=== PATIENT | female | born 1975 | race Caucasian/White ===

== ENCOUNTER 2016-07-04 06:33 | Emergency (ER) | payer OTHER ==
[~2016-07-04] VITALS: Ht 185.4 cm; Wt 77.0 kg
[~2016-07-04 06:33] MED LIST: CYCL1TAB29 PO; HYDR-3534 PO
[2016-07-04 06:35] VITALS: BP 133/74; PULSE 92; RESP 20; TEMP 98; O2SAT 97
[2016-07-04] MEDS ORDERED: FAMOTIDINE 20 MG/2 ML VIAL IV PUSH ONE (06:45)
[2016-07-04] MEDS ORDERED: EPINEPHrine HCL (1:1000) 1 MG/ML VIAL IM ONE (06:45)
[2016-07-04] MEDS ORDERED: methylPREDNISolone SOD SUCC 125 MG/2 ML VIAL IVP ONE (06:45)
[2016-07-04] MEDS ORDERED: SODIUM CHLOR 0.9% 1000 ML INJ 1,000 ML IV SCH (06:45)
[2016-07-04] MEDS ORDERED: SODIUM CHLORIDE 0.9% FLUSH 5 ML FLUSH IVF PRN (06:45)
[2016-07-04 07:00] VITALS: O2SAT 98
[2016-07-04] MEDS ORDERED: ZANT150T2 PO (07:00)
[2016-07-04] MEDS ORDERED: PRED50 PO ×2 (07:00→22:57)
--- NOTE | 2016-07-04 07:00 | PD ---
HPI Chief Complaint: Allergic/Adverse Reaction Time Seen by Provider: 06:45 Travel History International Travel<30 days: No Contact w/Intl Traveler<30days: No Traveled to known affect area: No History of Present Illness HPI The patient is a 40-year-old female that states she took a Flexeril at 3 PM yesterday and at 9 PM started noticing some swelling in the wrist. The swelling and itching gradually spread to her legs, trunk and both arms. She denies any tongue swelling or airway obstruction. She feels slightly dizzy but did not faint or have any near syncopal episode. She denies any wheezing or shortness of breath. She took 50 mg of Benadryl by mouth at 6 AM this morning. PFSH Past Medical History Bipolar Disorder: Yes Diminished Hearing: No ?: Not : 3 Para: 3 Tubal Ligation: Yes Past Surgical History Genitourinary Surgery: Yes (UTERINE ABLATION) Neurologic Surgery: Yes (RIGHT CARPLE TUNNEL RELEASE) Social History Alcohol Use: Yes (2-3 X WK) Tobacco Use: No Allergies-Medications (Allergen,Severity, Reaction): Coded Allergies: Latex (Verified Allergy, Severe, Rash, 07/04/16) Reported Meds & Prescriptions Reported Meds & Active Scripts Active Flexeril (Cyclobenzaprine HCl) 10 Mg Tab 10 Mg PO TID Review of Systems Except as stated in HPI: all other systems reviewed are Neg Physical Exam Narrative GENERAL: The patient is alert, oriented 3 in moderate apparent distress with her urticarial rash. Her vital signs are essentially normal. SKIN: Warm and dry. There is an urticarial rash over both legs, both arms, trunk, ears and back HEAD: Atraumatic. Normocephalic. EYES: Pupils equal and round. No scleral icterus. No injection or drainage. ENT: No nasal bleeding or discharge. Mucous membranes pink and moist. The tongue is not swollen and there is no airway compromise, no stridor. NECK: Trachea midline. No JVD. CARDIOVASCULAR: Regular rate and rhythm. No murmur appreciated. RESPIRATORY: No accessory muscle use. Clear to auscultation. Breath sounds equal bilaterally. GASTROINTESTINAL: Abdomen soft, non-tender, nondistended. Hepatic and splenic margins not palpable. MUSCULOSKELETAL: No obvious deformities. No clubbing. No cyanosis. No edema. NEUROLOGICAL: Awake and alert. No obvious cranial nerve deficits. Motor grossly within normal limits. Normal speech. PSYCHIATRIC: Appropriate mood and affect; insight and judgment normal. Data Data Last Documented VS Vital Signs Date Time Temp Pulse Resp B/P Pulse Ox O2 Delivery O2 Flow Rate FiO2 07/04/16 07:00 98 Room Air 07/04/16 06:35 98.0 92 20 133/74 Orders Ecg Monitoring (07/04/16 06:45) Iv Access Insert/Monitor (07/04/16 06:45) Oximetry (07/04/16 06:45) Methylprednisolone So Succ Inj (Solumedr (07/04/16 06:45) Famotidine Inj (Pepcid Inj) (07/04/16 06:45) Sodium Chlor 0.9% 1000 Ml Inj (Ns 1000 M (07/04/16 06:45) Sodium Chloride 0.9% Flush (Ns Flush) (07/04/16 06:45) Epinephrine (1:1000) Inj (Adrenalin (1:1 (07/04/16 06:45) MDM Medical Decision Making Medical Screen Exam Complete: Yes Emergency Medical Condition: Yes Medical Record Reviewed: Yes Differential Diagnosis Allergic reaction, cellulitishighly likely, angioedemaunlikely Narrative Course The patient has a generalized allergic urticarial reaction. It is now 0710 and the patient's rash is fading away. She feels much better at this time. Plan: The patient will be given prescriptions for prednisone on a tapered course and Zantac to take at home. She also will take Benadryl which she already has at home. Diagnosis Primary Impression: Allergic urticaria Additional Instructions: Take the prednisone one tablet twice daily for 4 days followed by one tablet daily for 4 days. The Zantac is one tablet twice daily. The Benadryl is taken one 25 mg tablet 3 times daily. If this becomes a recurrent condition then you' ll need to follow-up with an sheet tailer. I certainly would discontinue the wristband that you wore on her left wrist because it could be latex. Med/Other Pt SpecificInfo: Prescription(s) given Disposition: 01 DISCHARGE HOME Condition: Stable Adalid Dupree MD Jul 04, 2016 07:00
[2016-07-04 07:23] VITALS: BP 130/60; PULSE 104; RESP 16; O2SAT 100
[2016-07-04] MEDS ORDERED: RANI150T PO (22:57)
[2016-07-04] MEDS ORDERED: BENA25CA4 PO (23:11)
== END 2016-07-04 07:49 | disposition home or self-care (01) ==
LOC: PHED 06:33
DX: L50.0 Allergic urticaria (principal); R42 Dizziness and giddiness; Z86.59 Personal history of other mental and behavioral disorders
CPT/HCPCS: 96372; 96374; 96375; 99284; J0171; J2930; J7030

== ENCOUNTER 2016-07-04 22:27 | Emergency (ER) | payer OTHER ==
[~2016-07-04] VITALS: Ht 185.4 cm; Wt 77.8 kg
[~2016-07-04 22:27] MED LIST changes: +PRED50 PO; +ZANT150T2 PO
[2016-07-04 22:43] VITALS: BP 134/83; PULSE 101; RESP 18; TEMP 99.1; O2SAT 98
[2016-07-04] MEDS ORDERED: PRED50 PO (22:57)
[2016-07-04] MEDS ORDERED: RANI150T PO (22:57)
[2016-07-04 23:00] VITALS: BP 126/75; PULSE 89; RESP 18; O2SAT 98
[2016-07-04] MEDS ORDERED: BENA25CA4 PO (23:11)
[2016-07-04] MEDS ORDERED: SODIUM CHLOR 0.9% 1000 ML INJ 1,000 ML IV SCH (23:12)
[2016-07-04] MEDS ORDERED: FAMOTIDINE 20 MG/2 ML VIAL IV PUSH ONE (23:15)
[2016-07-04] MEDS ORDERED: methylPREDNISolone SOD SUCC 125 MG/2 ML VIAL IVP ONE (23:15)
[2016-07-04] MEDS ORDERED: diphenhydrAMINE HCL 50 MG/ML VIAL IM ONE (23:15)
[2016-07-04] MEDS ORDERED: SODIUM CHLORIDE 0.9% FLUSH 5 ML FLUSH IVF PRN (23:15)
[2016-07-04] MEDS ORDERED: EPINEPHrine HCL (1:1000) 1 MG/ML VIAL IM ONE (23:45)
[2016-07-05 00:45] VITALS: BP 128/65; PULSE 96; RESP 18; O2SAT 98
[2016-07-05] MEDS ORDERED: diphenhydrAMINE HCL 50 MG/ML VIAL IV PUSH ONE (00:45)
--- NOTE | 2016-07-05 01:30 | PD ---
HPI Chief Complaint: Allergic/Adverse Reaction Time Seen by Provider: 22:54 Travel History International Travel<30 days: No Contact w/Intl Traveler<30days: No Traveled to known affect area: No History of Present Illness HPI Patient is a 40 year old female presents to the ER for the second time today with complaints of rash and facial swelling. Last time she was here she was given epinephrine and was feeling much better. States by the time she got home her rash was already returning. States its on both hands and gradually migrating. States pruritic. States her lips were swelling before as well. Quite worked up in the ED. Denies sob or choking sensation. PFSH Past Medical History Bipolar Disorder: Yes Diminished Hearing: No Psychiatric: Yes (BORDERLINE PERSONALITY DISORDER) Immunizations Current: Yes Tetanus Vaccination: Unknown Influenza Vaccination: Yes ?: Not LMP: 11 YEARS AGO/ ABLATION : 3 Para: 3 Tubal Ligation: Yes Past Surgical History Genitourinary Surgery: Yes (UTERINE ABLATION) Neurologic Surgery: Yes (RIGHT CARPLE TUNNEL RELEASE) Social History Alcohol Use: Yes (2-3 X WK) Tobacco Use: Yes (1PPD) Substance Use: No Allergies-Medications (Allergen,Severity, Reaction): Coded Allergies: Latex (Verified Allergy, Severe, Rash, 07/04/16) Reported Meds & Prescriptions Reported Meds & Active Scripts Active Flexeril (Cyclobenzaprine HCl) 10 Mg Tab 10 Mg PO TID Reported Benadryl Allergy (Diphenhydramine HCl) 25 Mg Cap 50 Mg PO BID Ranitidine (Ranitidine HCl) 150 Mg Tab 150 Mg PO BID Prednisone 50 Mg Tab 50 Mg PO BID Review of Systems Except as stated in HPI: all other systems reviewed are Neg Physical Exam Narrative GENERAL: WD/WN in nad. SKIN: Warm and dry. Multiple foci of hives on arms, chest, abdomen, legs, back. Face is relatively spared. HEAD: Atraumatic. Normocephalic. EYES: Pupils equal and round. No scleral icterus. No injection or drainage. ENT: No nasal bleeding or discharge. Mucous membranes pink and moist. No lip, tongue nor oropharyngeal swelling. NECK: Trachea midline. No JVD. CARDIOVASCULAR: Regular rate and rhythm. RESPIRATORY: No accessory muscle use. Clear to auscultation. Breath sounds equal bilaterally. GASTROINTESTINAL: Abdomen soft, non-tender, nondistended. Hepatic and splenic margins not palpable. MUSCULOSKELETAL: Extremities without clubbing, cyanosis, or edema. No obvious deformities. NEUROLOGICAL: Awake and alert. No obvious cranial nerve deficits. Motor grossly within normal limits. Five out of 5 muscle strength in the arms and legs. Normal speech. PSYCHIATRIC: Appropriate mood and affect; insight and judgment normal. Data Data Last Documented VS Vital Signs Date Time Temp Pulse Resp B/P Pulse Ox O2 Delivery O2 Flow Rate FiO2 07/05/16 01:45 93 18 116/71 98 Room Air 07/04/16 22:43 99.1 Orders Ecg Monitoring (07/04/16 23:12) Iv Access Insert/Monitor (07/04/16 23:12) Oximetry (07/04/16 23:12) Diphenhydramine Inj (Benadryl Inj) (07/04/16 23:15) Methylprednisolone So Succ Inj (Solumedr (07/04/16 23:15) Famotidine Inj (Pepcid Inj) (07/04/16 23:15) Sodium Chlor 0.9% 1000 Ml Inj (Ns 1000 M (07/04/16 23:12) Sodium Chloride 0.9% Flush (Ns Flush) (07/04/16 23:15) Epinephrine (1:1000) Inj (Adrenalin (1:1 (07/04/16 23:45) Diphenhydramine Inj (Benadryl Inj) (07/05/16 00:45) MDM Medical Decision Making Medical Screen Exam Complete: Yes Emergency Medical Condition: Yes Differential Diagnosis Anaphylaxis, Allergic reaction, uriticaria, stress urticaria, anxiety. Narrative Course Patient responding to meds, given total of 50mg benadryl IV and still wide awake. She may have a component of stress-urticaria as she is fairly anxious appearing. She was observed in the ER for 3 hours and is stable. No indication for further workup in the ED nor admission. No airway invovlement. Diagnosis Primary Impression: Allergic urticaria Disposition: DISCHARGE HOME Condition: Stable Justino Lundy MD Jul 05, 2016 01:30
[2016-07-05 01:45] VITALS: BP 116/71; PULSE 93; RESP 18; O2SAT 98
== END 2016-07-05 02:08 | disposition home or self-care (01) ==
LOC: PHED 22:27
DX: L50.0 Allergic urticaria (principal); F17.200 Nicotine dependence, unspecified, uncomplicated; Z86.59 Personal history of other mental and behavioral disorders
CPT/HCPCS: 96361; 96372; 96374; 96375; 99283; J0171; J1200; J2930; J7030